=== PATIENT | female | born 1960 | race African-American/Black ===

== ENCOUNTER → 2020-10-24 | Day surgery (SDC) | payer OTHER ==
[2020-10-19 10:34] LABS: BASOPHILS # (AUTO) 0.1 (0.0-0.1); BASOPHILS % 1.1 % (0.0-1.0); EOSINOPHILS # (AUTO) 0.3 (0.0-0.4); HEMATOCRIT 41.2 % (34.2-44.1); HEMOGLOBIN 13.2 g/dL (12.0-16.0); LYMPHOCYTES # (AUTO) 1.6 (1.0-3.2); LYMPHOCYTES % 25.8 % (18.0-39.1); MEAN CORPUSCULAR HEMOGLOBIN 29.2 pg (28-32); MEAN CORPUSCULAR VOLUME 91.2 fL (81-99); MONOCYTES # (AUTO) 0.5 (0.2-0.8); MONOCYTES % 8.2 % (4.4-11.3); NEUTROPHILS # (AUTO) 3.7 (2.1-6.9); NEUTROPHILS % 59.6 % (38.7-80.0); PLATELET COUNT 393 x10e3/uL (140-360); RED BLOOD COUNT 4.52 x10e6/uL (3.6-5.1); RED CELL DISTRIBUTION WIDTH 13.6 % (11.7-14.4)
[~2020-10-24] MED LIST: ASPIRIN81 MG PO; LIDOCAINE HCL 2% LOCAL INJ 5 ML SDV VIAL INJ ONE; LIPITOR10 MG PO; LOSARTAN POTASS25 MG PO; NIFEDIPINE ER30 M1 PO; PLAVIX75 MG PO; PROPOFOL IV EMULSION 10 MG/ML 20 ML VIAL ONE; STOOL SOFT-STI1 EACH PO
[2020-10-24 11:53] VITALS: BP 144/99
== END | disposition home or self-care (01) ==
LOC: OR 09:13
PROVIDERS: ATTEND Internal Medicine Gastroenterology
DX: K59.00 Constipation, unspecified (principal); D12.5 Benign neoplasm of sigmoid colon; K64.8 Other hemorrhoids; K21.9 Gastro-esophageal reflux disease without esophagitis; I25.10 Atherosclerotic heart disease of native coronary artery without angina pectoris; I10 Essential (primary) hypertension; J45.909 Unspecified asthma, uncomplicated; F41.9 Anxiety disorder, unspecified; Z01.810 Encounter for preprocedural cardiovascular examination; Z01.812 Encounter for preprocedural laboratory examination; Z20.822 Contact with and (suspected) exposure to COVID-19; Z91.041 Radiographic dye allergy status; Z79.02 Long term (current) use of antithrombotics/antiplatelets; Z79.82 Long term (current) use of aspirin; Z86.73 Personal history of transient ischemic attack (TIA), and cerebral infarction without residual deficits; Z95.5 Presence of coronary angioplasty implant and graft
CPT/HCPCS: 36415; 45385; 85025; 88305; 93005; J2001; J2704; U0002

== ENCOUNTER 2021-08-12 07:00 | Observation (INO) | payer OTHER ==
[2021-08-08 12:30] LABS: BASOPHILS # (AUTO) 0.1 (0.0-0.1); BASOPHILS % 0.9 % (0.0-1.0); EOSINOPHILS # (AUTO) 0.3 (0.0-0.4); EOSINOPHILS % 4.3 % (0.0-6.0); HEMATOCRIT 42.7 % (34.2-44.1); HEMOGLOBIN 13.3 g/dL (12.0-16.0); LYMPHOCYTES # (AUTO) 1.8 (1.0-3.2); LYMPHOCYTES % 31.4 % (18.0-39.1); MEAN CORPUSCULAR HEMOGLOBIN 28.9 pg (28-32); MEAN CORPUSCULAR HGB CONC 31.1 g/dL (31-35); MEAN CORPUSCULAR VOLUME 92.6 fL (81-99); MONOCYTES # (AUTO) 0.5 (0.2-0.8); MONOCYTES % 7.9 % (4.4-11.3); NEUTROPHILS # (AUTO) 3.2 (2.1-6.9); NEUTROPHILS % 55.3 % (38.7-80.0); PLATELET COUNT 351 x10e3/uL (140-360); RED BLOOD COUNT 4.61 x10e6/uL (3.6-5.1); RED CELL DISTRIBUTION WIDTH 15.9 % (11.7-14.4)
[~2021-08-12] VITALS: Ht 162.6 cm; Wt 42.2 kg
[~2021-08-12 07:00] MED LIST changes: -LIDOCAINE HCL 2% LOCAL INJ 5 ML SDV VIAL INJ ONE; -PROPOFOL IV EMULSION 10 MG/ML 20 ML VIAL ONE
[2021-08-12] MEDS ORDERED: SODIUM CHLORIDE 0.9% 50ML 50 ML ONE (07:42)
[2021-08-12] MEDS ORDERED: ROPIVACAINE 246.25 MG, EPINEPHRINE HCL 1:1000 1ML 0.5 MG, CLONIDINE HCL 0.08 MG, KETORO... INJ ONE ×5 (08:00)
[2021-08-12] MEDS ORDERED: CELECOXIB 200 MG CAP ONE (08:24)
[2021-08-12] MEDS ORDERED: DEXAMETHASONE SOD PHOS 10 MG/1 ML VIAL ONE (08:24)
[2021-08-12] MEDS ORDERED: GABAPENTIN 300 MG CAP ONE (08:24)
[2021-08-12] MEDS ORDERED: Vancomycin IV 1,000 MG ONE (08:51)
[2021-08-12] MEDS ORDERED: TRANEXAMIC ACID 1,000 MG/10 ML ML ONE (08:51)
[2021-08-12] MEDS ORDERED: SODIUM CHLORIDE 0.9% 500ML 500 ML ONE (09:06)
[2021-08-12] MEDS ORDERED: DOCUSATE SODIUM 100 MG CAP PO PRN (10:30)
[2021-08-12] MEDS ORDERED: ONDANSETRON HCL INJ 2MG/ML 2ML 2 MG/ML VIAL IV PRN (10:30)
[2021-08-12] MEDS ORDERED: KETOROLAC TROMETHAMINE 30 MG/ML VIAL IV PRN (10:30)
[2021-08-12] MEDS ORDERED: DIPHENHYDRAMINE HCL INJ 50 MG/ML VIAL IV PRN (10:30)
[2021-08-12] MEDS ORDERED: ACETAMINOPHEN 650 MG SUPP PR PRN (10:30)
[2021-08-12 12:12] VITALS: BP 124/78
[2021-08-12 12:35] VITALS: BP 124/78
[2021-08-12 12:40] VITALS: BP 124/78
[2021-08-12] MEDS ORDERED: EPHEDRINE SULFATE INJ 50 MG/ML VIAL ONE (13:10)
[2021-08-12] MEDS ORDERED: ONDANSETRON HCL INJ 2MG/ML 2ML 2 MG/ML VIAL ONE (13:10)
[2021-08-12] MEDS ORDERED: POVIDONE IODINE 0.05% 0.05 % ML PO ONE (13:10)
[2021-08-12] MEDS ORDERED: PROPOFOL IV EMULSION 10 MG/ML 20 ML VIAL ONE (13:10)
[2021-08-12] MEDS ORDERED: LIDOCAINE HCL 2% LOCAL INJ 5 ML SDV VIAL INJ ONE (13:10)
[2021-08-12] MEDS ORDERED: SEVOFLURANE INHAL SOLN 250 ML PEN BTL ONE (13:10)
[2021-08-12] MEDS: HYDROCODONE/APAP 5MG-325MG TAB PO PRN (13:21)
[2021-08-12] MEDS: SODIUM CHLORIDE 0.9% 1000ML 1,000 ML IV SCH ×2 (13:48→21:06)
[2021-08-12] MEDS ORDERED: ACETAMINOPHEN 1000 MG/100 ML IV PRN (14:00)
[2021-08-12 16:09] VITALS: BP 126/86
[2021-08-12] MEDS: Cefazolin 1 GM in SODIUM CHLORIDE 0.9% 50ML 50 ML IV SCH (16:22)
[2021-08-12] MEDS: ASPIRIN 325 MG TAB PO SCH (16:22)
[2021-08-12] MEDS: CELECOXIB 100 MG CAP PO SCH (16:22)
[2021-08-12] MEDS: HYDROCODONE/APAP 7.5MG-325MG 1 EA TAB PO PRN (18:23)
[2021-08-12 20:17] VITALS: BP 125/78
[2021-08-12] MEDS ORDERED: ZOLPIDEM TARTRATE 5 MG TAB PO PRN (21:00)
[2021-08-12 23:10] VITALS: BP 125/78
[2021-08-13] MEDS: HYDROCODONE/APAP 7.5MG-325MG 1 EA TAB PO PRN ×2 (00:07→07:20)
[2021-08-13] MEDS: Cefazolin 1 GM in SODIUM CHLORIDE 0.9% 50ML 50 ML IV SCH ×2 (00:08→07:18)
[2021-08-13 01:48] VITALS: BP 125/72
[2021-08-13 04:57] LABS: HEMATOCRIT 29.5 % (34.2-44.1); HEMOGLOBIN 9.5 g/dL (12.0-16.0)
[2021-08-13] MEDS: SODIUM CHLORIDE 0.9% 1000ML 1,000 ML IV SCH (05:50)
[2021-08-13 07:17] VITALS: BP 103/77
[2021-08-13] MEDS: ASPIRIN 325 MG TAB PO SCH (07:18)
[2021-08-13] MEDS: CELECOXIB 100 MG CAP PO SCH (07:18)
[2021-08-13 08:02] VITALS: BP 103/77
[2021-08-13] MEDS ORDERED: LOSARTAN POTASSIUM 25 MG TAB PO SCH (09:00)
[2021-08-13] MEDS: HYDROCODONE/APAP 5MG-325MG TAB PO PRN (11:04)
[2021-08-13] MEDS ORDERED: ATORVASTATIN 10 MG TAB PO SCH (21:00)
== END 2021-08-13 11:10 | disposition home health service (06) ==
LOC: OR 07:00 → PACU V 10:28 → IMCU 12:03
PROVIDERS: ADMIT Specialist; ATTEND Specialist
DX: M17.12 Unilateral primary osteoarthritis, left knee (principal); I25.10 Atherosclerotic heart disease of native coronary artery without angina pectoris; I10 Essential (primary) hypertension; D64.9 Anemia, unspecified; E78.5 Hyperlipidemia, unspecified; I69.353 Hemiplegia and hemiparesis following cerebral infarction affecting right non-dominant side; Z95.5 Presence of coronary angioplasty implant and graft; I25.2 Old myocardial infarction; Z90.49 Acquired absence of other specified parts of digestive tract; Z91.041 Radiographic dye allergy status; Z20.822 Contact with and (suspected) exposure to COVID-19
CPT/HCPCS: 27447; 36415 ×2; 71046; 73560; 85014; 85018; 85025; 86850; 86900; 86920; 93005; 94799; 97116 ×2; 97161; 97530; C1713 ×2; C1776 ×2; G0378 ×2; J0171; J0690 ×2; J1100; J1885; J2795; J3370; J7030; J7040; U0002; J2001; J2405

== ENCOUNTER 2021-08-23 19:37 | Inpatient (IN) | payer OTHER ==
[~2021-08-23] VITALS: Ht 162.6 cm; Wt 40.8 kg
[2021-08-23] MEDS ORDERED: SODIUM CHLORIDE 0.9% 1000ML 1,000 ML IV STA (19:44)
[2021-08-23 19:58] LABS: BASOPHILS % 0.4 % (0.0-1.0); EOSINOPHILS # (AUTO) 0.1 (0.0-0.4); EOSINOPHILS % 1.5 % (0.0-6.0); HEMOGLOBIN 10.9 g/dL (12.0-16.0); LYMPHOCYTES # (AUTO) 1.5 (1.0-3.2); LYMPHOCYTES % 17.8 % (18.0-39.1); MEAN CORPUSCULAR HEMOGLOBIN 29.1 pg (28-32); MEAN CORPUSCULAR HGB CONC 32.1 g/dL (31-35); MEAN CORPUSCULAR VOLUME 90.7 fL (81-99); MONOCYTES # (AUTO) 0.6 (0.2-0.8); MONOCYTES % 7.6 % (4.4-11.3); NEUTROPHILS # (AUTO) 6.1 (2.1-6.9); NEUTROPHILS % 72.2 % (38.7-80.0); PLATELET COUNT 631 x10e3/uL (140-360); RED BLOOD COUNT 3.75 x10e6/uL (3.6-5.1)
[2021-08-23 20:27] LABS: ALANINE AMINOTRANSFERASE 9 IU/L (0-55); ALBUMIN 3.9 g/dL (3.5-5.0); ALBUMIN/GLOBULIN RATIO 1.1 (0.8-2.0); ALKALINE PHOSPHATASE 132 IU/L (40-150); ANION GAP 15.8 mmol/L (8-16); BLOOD UREA NITROGEN 12 mg/dL (7-26); BUN/CREATININE RATIO 14 (6-25); CALCIUM 9.6 mg/dL (8.4-10.2); CARBON DIOXIDE 28 mmol/L (22-29); CHLORIDE 99 mmol/L (98-107); CREATINE KINASE 11 IU/L (29-168); CREATININE, SERUM 0.83 mg/dL (0.57-1.11); EST GLOMERULAR FILTRATION RATE 85 ML/MIN (60-); GLUCOSE 117 mg/dL (74-118); POTASSIUM 3.8 mmol/L (3.5-5.1); SODIUM 139 mmol/L (136-145)
[2021-08-23] MEDS ORDERED: Morphine 2mg Syringe 2 MG/ML SYR IV STA (20:38)
[2021-08-23 20:45] LABS: B-TYPE NATRIURETIC PEPTIDE2 < 10.0 pg/mL (0-100)
[2021-08-23] MEDS ORDERED: ONDANSETRON HCL INJ 2MG/ML 2ML 2 MG/ML VIAL IV PRN (21:15)
[2021-08-23] MEDS ORDERED: ENOXAPARIN SOD INJ 40 MG/0.4 ML SYR SC STA (22:04)
[2021-08-24] VITALS (10 sets, daily range): BP systolic 109–148; BP diastolic 77–95
[2021-08-24] MEDS: Morphine 2mg Syringe 2 MG/ML SYR IV PRN ×5 (00:22→21:22)
[2021-08-24 06:45] LABS: BASOPHILS # (AUTO) 0.1 (0.0-0.1); BASOPHILS % 0.8 % (0.0-1.0); EOSINOPHILS # (AUTO) 0.2 (0.0-0.4); EOSINOPHILS % 2.7 % (0.0-6.0); HEMATOCRIT 28.6 % (34.2-44.1); HEMOGLOBIN 9.4 g/dL (12.0-16.0); LYMPHOCYTES % 22.3 % (18.0-39.1); MEAN CORPUSCULAR HGB CONC 32.9 g/dL (31-35); MEAN CORPUSCULAR VOLUME 88.3 fL (81-99); MONOCYTES # (AUTO) 0.8 (0.2-0.8); MONOCYTES % 8.6 % (4.4-11.3); NEUTROPHILS # (AUTO) 5.7 (2.1-6.9); PLATELET COUNT 473 x10e3/uL (140-360); RED BLOOD COUNT 3.24 x10e6/uL (3.6-5.1); RED CELL DISTRIBUTION WIDTH 15.9 % (11.7-14.4)
[2021-08-24 07:09] LABS: ALBUMIN 3.2 g/dL (3.5-5.0); ALBUMIN/GLOBULIN RATIO 1.1 (0.8-2.0); ANION GAP 11.9 mmol/L (8-16); CALCIUM 8.8 mg/dL (8.4-10.2); CREATININE, SERUM 0.71 mg/dL (0.57-1.11); POTASSIUM 3.9 mmol/L (3.5-5.1)
[2021-08-24 07:22] LABS: CREATINE KINASE 14 IU/L (29-168)
[2021-08-24] MEDS: ASPIRIN 81 MG CHEW TAB PO SCH (08:39)
[2021-08-24] MEDS: LOSARTAN POTASSIUM 25 MG TAB PO SCH (08:41)
[2021-08-24] MEDS: CLOPIDOGREL BISULFATE 75 MG TAB PO SCH (08:41)
[2021-08-24] MEDS: SENNA-S TABLET PO SCH (08:41)
[2021-08-24] MEDS: NIFEDIPINE CR 30 MG TAB PO SCH (08:41)
[2021-08-24] MEDS: ENOXAPARIN SOD INJ 40 MG/0.4 ML SYR SC SCH ×2 (08:42→16:03)
[2021-08-24 13:27] LABS: CREATINE KINASE 16 IU/L (29-168)
[2021-08-24] MEDS ORDERED: ATORVASTATIN 10 MG TAB PO SCH (21:00)
[2021-08-24] MEDS: ATORVASTATIN 40 MG TAB PO SCH (22:14)
[2021-08-25] VITALS (7 sets, daily range): BP systolic 118–147; BP diastolic 62–93
[2021-08-25] MEDS: Morphine 2mg Syringe 2 MG/ML SYR IV PRN ×4 (03:18→19:53)
[2021-08-25] MEDS: ENOXAPARIN SOD INJ 40 MG/0.4 ML SYR SC SCH ×2 (08:37→17:18)
[2021-08-25] MEDS: ASPIRIN 81 MG CHEW TAB PO SCH (08:37)
[2021-08-25] MEDS: SENNA-S TABLET PO SCH (08:37)
[2021-08-25] MEDS: LOSARTAN POTASSIUM 25 MG TAB PO SCH (08:37)
[2021-08-25] MEDS: CLOPIDOGREL BISULFATE 75 MG TAB PO SCH (08:37)
[2021-08-25] MEDS: NIFEDIPINE CR 30 MG TAB PO SCH (09:42)
[2021-08-25] MEDS ORDERED: BISACODYL 5 MG TAB EC PO ONE (17:30)
[2021-08-25] MEDS ORDERED: SOD PHOSPHATE/SOD BIPHOSPHATE ENEMA 132 ML BTL PR ONE (17:30)
[2021-08-25] MEDS ORDERED: MINERAL OIL 132 ML BTL PR PRN (19:30)
[2021-08-25] MEDS: ATORVASTATIN 40 MG TAB PO SCH (19:55)
[2021-08-26] VITALS: BP 114/87
[2021-08-26] MEDS: Morphine 2mg Syringe 2 MG/ML SYR IV PRN ×3 (01:25→14:31)
[2021-08-26 04:00] VITALS: BP 103/84
[2021-08-26] MEDS: BISACODYL 5 MG TAB EC PO SCH ×2 (06:07→10:51)
[2021-08-26 07:41] VITALS: BP 136/85
[2021-08-26 08:00] VITALS: BP 136/85
[2021-08-26] MEDS: ASPIRIN 81 MG CHEW TAB PO SCH (08:05)
[2021-08-26] MEDS: SENNA-S TABLET PO SCH (08:05)
[2021-08-26] MEDS: CLOPIDOGREL BISULFATE 75 MG TAB PO SCH (08:05)
[2021-08-26] MEDS: LACTULOSE SYRUP 20 GM/30 ML UDC PO SCH ×3 (08:05→15:00)
[2021-08-26] MEDS: ENOXAPARIN SOD INJ 40 MG/0.4 ML SYR SC SCH (08:05)
[2021-08-26] MEDS: NIFEDIPINE CR 30 MG TAB PO SCH (08:06)
[2021-08-26] MEDS: LOSARTAN POTASSIUM 25 MG TAB PO SCH (08:07)
[2021-08-26 11:30] VITALS: BP 117/71
[2021-08-26 15:01] VITALS: BP 96/64
== END 2021-08-26 17:34 | disposition home or self-care (01) | DRG 948 ==
LOC: ER 19:42 → ERHOLD 21:23 → MED/SURG 22:18 → OBSVTOIN 08-25 10:13
PROVIDERS: ADMIT Internal Medicine; ATTEND Internal Medicine
DX: R53.1 Weakness (principal); Z68.1 Body mass index [BMI] 19.9 or less, adult; K59.00 Constipation, unspecified; R07.89 Other chest pain; I10 Essential (primary) hypertension; E78.5 Hyperlipidemia, unspecified; D64.9 Anemia, unspecified; Z91.041 Radiographic dye allergy status; Z96.652 Presence of left artificial knee joint; I25.2 Old myocardial infarction; I25.10 Atherosclerotic heart disease of native coronary artery without angina pectoris; Z95.5 Presence of coronary angioplasty implant and graft; Z20.822 Contact with and (suspected) exposure to COVID-19; R63.6 Underweight; M25.552 Pain in left hip
CPT/HCPCS: 36415; 70450; 71045; 74018; 78580; 80053; 82550; 82553; 83605; 83880; 84484; 85025; 85379; 87040; 93005; 93971; 94799; 99284; A9540; G0378; J1650; J2270; J2405; J7030; U0002

== ENCOUNTER → 2021-11-20 | Day surgery (SDC) | payer OTHER ==
[2021-11-18 10:38] LABS: BASOPHILS % 0.8 % (0.0-1.0); EOSINOPHILS # (AUTO) 0.1 (0.0-0.4); EOSINOPHILS % 3.6 % (0.0-6.0); HEMATOCRIT 39.4 % (34.2-44.1); LYMPHOCYTES # (AUTO) 1.5 (1.0-3.2); LYMPHOCYTES % 41.9 % (18.0-39.1); MEAN CORPUSCULAR HGB CONC 30.5 g/dL (31-35); MEAN CORPUSCULAR VOLUME 92.1 fL (81-99); MONOCYTES # (AUTO) 0.3 (0.2-0.8); MONOCYTES % 6.8 % (4.4-11.3); NEUTROPHILS # (AUTO) 1.7 (2.1-6.9); NEUTROPHILS % 46.6 % (38.7-80.0); PLATELET COUNT 331 x10e3/uL (140-360); RED BLOOD COUNT 4.28 x10e6/uL (3.6-5.1); RED CELL DISTRIBUTION WIDTH 13.6 % (11.7-14.4)
[~2021-11-20] MED LIST changes: +POVIDONE IODINE 0.05% 0.05 % ML PO ONE; +PROPOFOL IV EMULSION 10 MG/ML 20 ML VIAL ONE
[2021-11-20 12:15] VITALS: BP 121/83
== END | disposition home or self-care (01) ==
LOC: OR 08:30
PROVIDERS: ATTEND Internal Medicine Gastroenterology
DX: K29.00 Acute gastritis without bleeding (principal); K29.50 Unspecified chronic gastritis without bleeding; K59.00 Constipation, unspecified; K44.9 Diaphragmatic hernia without obstruction or gangrene; K64.8 Other hemorrhoids; R63.4 Abnormal weight loss; K86.1 Other chronic pancreatitis; I25.2 Old myocardial infarction; G83.9 Paralytic syndrome, unspecified; J44.9 Chronic obstructive pulmonary disease, unspecified; I25.10 Atherosclerotic heart disease of native coronary artery without angina pectoris; I10 Essential (primary) hypertension; F17.210 Nicotine dependence, cigarettes, uncomplicated; Z91.041 Radiographic dye allergy status; Z01.812 Encounter for preprocedural laboratory examination; Z20.822 Contact with and (suspected) exposure to COVID-19; Z79.02 Long term (current) use of antithrombotics/antiplatelets; Z79.82 Long term (current) use of aspirin; Z79.899 Other long term (current) drug therapy; Z68.1 Body mass index [BMI] 19.9 or less, adult; Z86.73 Personal history of transient ischemic attack (TIA), and cerebral infarction without residual deficits
CPT/HCPCS: 36415; 43239; 45378; 85025; 88305; 88312; J2704; U0002